=== PATIENT | female | born 1960 | race Caucasian/White ===

== ENCOUNTER 2018-12-14 07:13 | Day surgery (SDC) | payer BC, OTHER ==
[2018-12-13 12:25] VITALS: BMI 29.2
[2018-12-14] MEDS ORDERED: LIDOCAINE HCL 1%, 10 MG/ML (20ML VIAL) ONE (10:27)
[2018-12-14] MEDS ORDERED: MIDAZOLAM HCL 2 MG/2 ML SINGLE DOSE VIAL ONE ×2 (10:30→10:45)
[2018-12-14] MEDS ORDERED: DEXAMETHASONE SOD PHOSPHATE 4 MG/1 ML VIAL ONE (10:41)
[2018-12-14] MEDS ORDERED: LIDOCAINE HCL/PF 2% SDV 5ML VIAL ONE (10:41)
[2018-12-14] MEDS ORDERED: ceFAZolin SODIUM 1 GM VIAL ONE (10:46)
[2018-12-14] MEDS ORDERED: ceFAZolin SODIUM 1 GM VIAL IVPB ONE (10:46)
[2018-12-14] MEDS ORDERED: PROPOFOL 20 ML ONE (10:49)
[2018-12-14] MEDS ORDERED: LIDOCAINE HCL 1%, 10 MG/ML (20ML VIAL) NR ONE (10:59)
[2018-12-14] MEDS ORDERED: oxyCODONE HCL 5 MG TABLET PO PRN (11:25)
--- NOTE | 2018-12-14 13:57 | OP ---
DATE OF OPERATION: 12/14/2018 PREOPERATIVE DIAGNOSIS: Left breast ductal carcinoma in situ. POSTOPERATIVE DIAGNOSIS: Left breast ductal carcinoma in situ. PROCEDURE: Left breast wire-localized lumpectomy. SURGEON: Nancy Dozier MD ANESTHESIA: Local and IV sedation. ESTIMATED BLOOD LOSS: Minimal. COMPLICATIONS: None. DISPOSITION: Stable at the end of procedure. INDICATIONS: Patient presented with a screening mammogram that noted clustered microcalcifications in the outer left breast. She underwent a stereotactic needle biopsy that showed a ductal carcinoma in situ. My recommendation was an excision of the area with a lumpectomy and whole breast radiation once margins are achieved. The procedure was discussed with all the questions answered. PROCEDURE IN DETAIL: Patient was brought to [facility] in [place], taken down to breast imaging, where a wire was used to localize the clip in the outer left breast. She was then brought to the operating room, and after IV sedation and IV antibiotics, the left breast was prepped and draped in the usual sterile fashion. The area in the outer left breast was anesthetized with 1% lidocaine without epinephrine. A radial incision was made in the left 9 o'clock location. A wire was used as a guide to get down to the area, and this was excised en bloc, tagged it with a long stitch lateral and a short stitch superior. I felt that was close superiorly and laterally. Therefore, I took a new additional lateral margin with a stitch at the old margin as well as a new superior margin with a stitch at the old margin. The lumpectomy was sent for a specimen radiograph, which showed the clip and wire to be intact within the specimen. This was then sent to Pathology for permanent section. The additional margins were also sent to Pathology for permanent section. Hemostasis was assured with electrocautery. The parenchyma was approximated with interrupted 2-0 Vicryl, skin approximated with interrupted 3-0 Vicryl and running 4-0 Prolene. Sterile dressing with Tegaderm and 4x4s applied. She tolerated the procedure well, was taken to recovery in good condition. NANCY DOZIER M.D. [id number]
[2018-12-14 14:59] VITALS: BP 119/74; PULSE 90; TEMP 98.5
--- NOTE | 2018-12-18 12:06 | PATH ---
Surgical Pathology Report Patient Name: JULY TOLEDO [facility]. Rec. #: [id number] /Age/Gender: 1960 (Age: 58) / F Account: [id number] Location: [facility] SURGICAL Taken: 12/14/2018 Received: 12/14/2018 Reported: 12/18/2018 Physicians: Nancy Escalera M.D. Specimen(s) Received A: LEFT BREAST LUMPECTOMY B: LEFT BREAST NEW LATERAL MARGIN C: LEFT BREAST NEW SUPERIOR MARGIN Clinical History DCIS left breast Final Diagnosis A. BREAST, LEFT, LUMPECTOMY: ATYPICAL DUCTAL HYPERPLASIA AND FLAT EPITHELIAL ATYPIA IN A BACKGROUND OF FIBROCYSTIC CHANGES INCLUDING STROMAL FIBROSIS, MICROCYSTS, AND COLUMNAR CELL CHANGES WITH RARE MICROCALCIFICATIONS. CHANGES OF PRIOR BIOPSY IDENTIFIED. B. BREAST, LEFT, NEW LATERAL MARGIN, BIOPSY: BENIGN BREAST TISSUE. C. BREAST, NEW SUPERIOR MARGIN, LEFT, EXCISION: FOCAL ATYPICAL DUCTAL HYPERPLASIA AND FLAT EPITHELIAL ATYPIA IN A BACKGROUND OF FIBROCYSTIC CHANGES. Electronically Signed Gina Atwood M.D. Gross Description A. Received fresh on an [employer]uGrid, labeled "left breast lumpectomy," is a 3.5 x 2.5 x 0.7 cm. arellano-yellow, irregular, portion of fibroadipose tissue with a needle localization wire present. There is a short suture marking the superior aspect and a long suture marking the lateral aspect, per the surgeon. There is no skin or nipple present. The specimen is inked as follows: Superior blue; inferior green; anterior and lateral red; medial yellow; deep black. The specimen is serially sectioned from medial to lateral. Sectioning reveals foci of white fibrous tissue. No definitive mass is identified. The specimen is entirely and sequentially submitted in 6 cassettes with the medial margin in cassette 1 and a lateral margin in cassette 6. Total formalin fixation time: Approximately 6 hours B. Received in formalin labeled "left breast new lateral margin," is a 2.5 x 2.1 x 0.9 cm portion of fibroadipose tissue with a suture marking the old margin, per the surgeon. The new margin is inked blue and the specimen is serially sectioned. The specimen is entirely submitted in 3 cassettes. C. Received in formalin labeled "left breast new superior margin," is a 3.0 x 2.4 x 1.2 cm portion of fibroadipose tissue with a suture marking the biopsy cavity side, per the surgeon. The new margin is inked blue and the specimen is serially sectioned. The specimen is entirely and sequentially submitted in 4 cassettes. 12/14/2018 [facility]12/14/2018
== END 2018-12-14 13:40 | disposition home or self-care (01) ==
LOC: JASU-SURG 07:13
PROVIDERS: ATTEND Surgery
PROC: 0HBU0ZZ Excision of Left Breast, Open Approach (ICD-10-PCS; principal; 2018-12-14 10:00)
DX: D05.12 Intraductal carcinoma in situ of left breast (principal)
CPT/HCPCS: 19281; 88307-TC